=== PATIENT | male | born 1985 | race Caucasian/White ===

== ENCOUNTER 2022-07-26 14:36 | Emergency (ER) | payer OTHER ==
[~2022-07-26] VITALS: Ht 180.3 cm; Wt 81.6 kg
[2022-07-26 14:49] VITALS: BP 132/75
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
--- NOTE | 2022-07-26 15:25 | NUR ---
Patient being evaluated by PROSPER LAURENT at [facility].
[2022-07-26] MEDS ORDERED: GABA600T11 PO ×2 (15:28→17:32)
[2022-07-26 16:00] VITALS: BP 132/75
--- NOTE | 2022-07-26 16:00 | NUR ---
Patient discharged with v/s stable. Written and verbal after care instructions given and explained. Patient alert, oriented and verbalized understanding of instructions. Ambulatory with steady gait. All questions addressed prior to discharge. ID band removed. Patient advised to follow up with PMD. Rx of GABAPRNTIN given. Patient educated on indication of medication including possible reaction and side effects. Opportunity to ask questions provided and answered.
== END 2022-07-26 16:00 | disposition home or self-care (01) ==
LOC: MED 14:36
DX: M25.559 Pain in unspecified hip (principal); Z00.00 Encounter for general adult medical examination without abnormal findings; Z76.0 Encounter for issue of repeat prescription; Z79.899 Other long term (current) drug therapy
CPT/HCPCS: 99281